=== PATIENT | female | born 1945 | race Caucasian/White ===

== ENCOUNTER 2017-02-18 08:49 | Emergency (ER) | payer OTHER ==
[~2017-02-18] VITALS: Ht 149.9 cm; Wt 58.5 kg
[~2017-02-18 08:49] MED LIST: ADVAIR 100/501 DISK IH; ADVAIR 250/501 DISK IH; ALBUTEROL2.5 MG/3 M IH; ALENDRONATE SOD70 MG PO; ALPRAZOLAM1 MG PO; ASPIR 8181 M1 PO; CALCIUM 500 +1 EAC5 PO; CALCIUM 600+D1 EACH PO; CARAFATE1 GM PO; CIPROFLOXACIN500 M1 PO; CLONAZEPAM0.5 MG PO; COMPAZINE10 MG PO; DAILY VALUE1 EACH PO; DECADRON4 MG PO; DOC-Q-LAX TABL1 EACH PO; DUONEB 2.5-0.5 M3 ML AEROSOL; ELAVIL25 MG PO; FISH OIL 1,0001 EAC7 PO; GLIPIZIDE XL5 MG PO; IMIPRAMINE HCL50 MG PO; IPRATROPIU0.2 MG/1 M IH; KLONOPIN0.5 M1 PO; MARINOL2.5 M1 PO; METOCLOPRAMIDE H5 MG PO; MIRALAX255 GM PO; MIRTAZAPINE15 MG PO; MIRTAZAPINE30 MG PO; MYCOSTATIN 100,60 ML PO; NITROFURANTOIN100 M3 PO; OMEPRAZOLE20 M2 PO; ONDANSETRON HCL8 MG PO; ONDANSETRON ODT8 MG PO; OXAYDO5 MG PO; PANTOPRAZOLE SO40 MG PO; PRAVACHOL40 MG PO; PROTONIX40 MG PO; PURELAX510 GM PO; SEROQUEL12.5 MG PO; SERTRALINE HCL50 MG PO; SUCRALFATE1 GM PO; TRAVATAN Z5 ML BOTH EYES; TRAVATAN Z5 ML LEFT EYE; TRAZODONE HCL100 MG PO; TRAZODONE HCL50 MG PO; ZOFRAN8 MG PO
[2017-02-18 09:19] LABS: ADD MIUA? NO; BILIRUBIN NEGATIVE; BLOOD NEGATIVE; COLOR STRAW ((YELLOW)); GLUCOSE (STRIP) NEGATIVE; KETONES NEGATIVE; LEUKOCYTES NEGATIVE; NITRITE NEGATIVE; PROTEIN (STRIP) NEGATIVE; SPECIFIC GRAVITY 1.005 (1.000-1.030); UCUL ADDED? NO; UROBILINOGEN 0.2 MG/DL (0.2-1.0)
[2017-02-18 09:28] LABS: HEMATOCRIT 38.4 % (36.0-46.0); MCH 29.9 PG (29.0-34.0); MCV 93.4 FL (83-99); MEAN PLAT.VOLUME 11.2 uM^3 (9.5-12.4); RBC DIS.WIDTH-CV 13.5 % (11.8-14.6); RBC DIS.WIDTH-SD 45.7 % (39-53); RED BLOOD COUNT 4.11 M/uL (3.80-5.20); WHITE BLOOD COUNT 9.8 K/uL (4.1-10.2)
[2017-02-18 09:30] LABS: PLATELET COUNT 102 K/uL (156-360)
[2017-02-18 09:37] LABS: CHLORIDE 97 mEq/L (99-109); POTASSIUM 3.9 mEq/L (3.7-5.4); SODIUM 137 mEq/L (136-147)
[2017-02-18 09:39] LABS: GLUCOSE 162 mg/dL (70-99)
[2017-02-18 09:40] LABS: ANION GAP 9 MEQ/L (2-14)
[2017-02-18 09:41] LABS: TOTAL BILIRUBIN 0.5 mg/dL (0.0-1.0)
[2017-02-18 09:42] LABS: ALKALINE PHOSPHATASE 117 IU/L (3-129)
[2017-02-18 09:43] LABS: GFR ESTIMATE (CALCULATED) > 59 mL/min/
[2017-02-18 09:44] LABS: UREA NITROGEN (BUN) 12 mg/dL (9-23)
[2017-02-18 10:15] LABS: AMYLASE 57 IU/L (1-118)
[2017-02-18 10:24] LABS: LIPASE 17 U/L (1.0-51.0)
[2017-02-18] MEDS ORDERED: CARAFATE1 GM PO (13:22)
[2017-02-18 13:38] VITALS: BP 116/77
== END 2017-02-18 13:40 | disposition home or self-care (01) ==
LOC: EME 08:49
DX: R10.13 Epigastric pain (principal); R11.0 Nausea; C34.90 Malignant neoplasm of unspecified part of unspecified bronchus or lung; C79.51 Secondary malignant neoplasm of bone; K21.9 Gastro-esophageal reflux disease without esophagitis; E78.5 Hyperlipidemia, unspecified; Z88.1 Allergy status to other antibiotic agents; Z88.0 Allergy status to penicillin; Z87.891 Personal history of nicotine dependence; Z99.81 Dependence on supplemental oxygen
CPT/HCPCS: 71020; 71260; 74177; 80053; 81003; 82150; 83690; 85027; 93005; 99281; 99284; J2270; J2405; J7030

== ENCOUNTER 2017-02-20 08:12 | Observation (INO) | payer OTHER ==
[~2017-02-20] VITALS: Ht 152.4 cm; Wt 57.3 kg
[2017-02-20 09:05] LABS: EOSINOPHIL (%) 1.1 % (0-5); EOSINOPHIL COUNT 0.1 K/uL (0-0.3); HEMATOCRIT 28.7 % (36.0-46.0); IMMATURE GRANULOCYTE (%) 0.6 % (0.0-0.7); IMMATURE GRANULOCYTE COUNT 0.1 K/uL; INSTRUMENT ABS NEUTROPHIL CT 10.1 K/uL; LYMPHOCYTE COUNT 1.1 K/uL (1.0-2.8); MCH 29.9 PG (29.0-34.0); MCHC 31.7 G/DL (30.0-36.0); MCV 94.4 FL (83-99); MONOCYTE (%) 5.5 % (3-12); MONOCYTE COUNT 0.7 K/uL (0-0.8); NEUTROPHIL (%) 83.4 % (45-76); NEUTROPHIL COUNT 10.1 K/uL (1.8-6.4); RBC DIS.WIDTH-CV 13.7 % (11.8-14.6); RBC DIS.WIDTH-SD 46.6 % (39-53); WHITE BLOOD COUNT 12.1 K/uL (4.1-10.2)
[2017-02-20 09:07] LABS: RED BLOOD COUNT 3.04 M/uL (3.80-5.20)
[2017-02-20 10:35] LABS: MEAN PLAT.VOLUME 11.1 uM^3 (9.5-12.4); PLAT.SUFFICIENCY DECREASED; PLATELET COUNT 108 K/uL (156-360)
[2017-02-20 12:29] LABS: ANION GAP 9 MEQ/L (2-14); CHLORIDE 100 MEQ/L (99-109); GFR ESTIMATE (CALCULATED) > 59 mL/min/; GLUCOSE 201 mg/dL (70-99); POTASSIUM 4.2 MEQ/L (3.7-5.4); SAMPLE HEMOLYSIS CHECK 0; SAMPLE ICTERIC CHECK 0; SAMPLE LIPEMIA CHECK 0; UREA NITROGEN (BUN) 7 mg/dL (9-23)
[2017-02-20 12:36] LABS: SODIUM 144 MEQ/L (136-147)
[2017-02-20] MEDS ORDERED: ROXICODONE5 MG PO (14:17)
[2017-02-20] MEDS ORDERED: SEROQUEL50 MG PO (14:18)
[2017-02-20] MEDS ORDERED: SERTRALINE HCL50 MG PO (14:19)
[2017-02-20] MEDS ORDERED: ATIVAN0.5 MG PO (14:21)
[2017-02-20] MEDS ORDERED: CONSTULOSE10 GM/15 M PO (14:21)
[2017-02-20] MEDS ORDERED: NYSTATIN15 GM TP (14:22)
[2017-02-20] MEDS ORDERED: METOCLOPRAMIDE10 MG PO (14:22)
[2017-02-20] MEDS ORDERED: SUCRALFATE1 GM PO (15:43)
[2017-02-20 16:14] LABS: ADD MIUA? YES; BILIRUBIN NEGATIVE; BLOOD NEGATIVE; COLOR YELLOW ((YELLOW)); GLUCOSE (STRIP) NEGATIVE; KETONES NEGATIVE; LEUKOCYTES SMALL; NITRITE NEGATIVE; PROTEIN (STRIP) NEGATIVE; SPECIFIC GRAVITY 1.006 (1.000-1.030); UROBILINOGEN 0.2 MG/DL (0.2-1.0)
[2017-02-20 16:29] LABS: BACTERIA RARE /HPF; EPITHELIAL CELLS RARE /HPF; MUCUS TRACE /LPF
[2017-02-20 16:52] VITALS: BP 138/79
[2017-02-20 19:34] VITALS: BP 132/80
[2017-02-21] VITALS: BP 138/76
[2017-02-21 00:40] VITALS: BP 109/68
[2017-02-21 06:25] LABS: HEMATOCRIT 31.9 % (36.0-46.0); MCH 30.8 PG (29.0-34.0); MCHC 32.3 G/DL (30.0-36.0); MCV 95.5 FL (83-99); MEAN PLAT.VOLUME 11.4 uM^3 (9.5-12.4); PLATELET COUNT 79 K/uL (156-360); RBC DIS.WIDTH-CV 13.8 % (11.8-14.6); RBC DIS.WIDTH-SD 48.3 % (39-53); RED BLOOD COUNT 3.34 M/uL (3.80-5.20); WHITE BLOOD COUNT 4.1 K/uL (4.1-10.2)
[2017-02-21 06:35] LABS: ANION GAP 5 MEQ/L (2-14); CHLORIDE 108 MEQ/L (99-109); GFR ESTIMATE (CALCULATED) > 59 mL/min/; POTASSIUM 3.9 MEQ/L (3.7-5.4); SAMPLE HEMOLYSIS CHECK 0; SAMPLE ICTERIC CHECK 0; SAMPLE LIPEMIA CHECK 0; SODIUM 147 MEQ/L (136-147); UREA NITROGEN (BUN) 7 mg/dL (9-23)
[2017-02-21 06:42] LABS: GLUCOSE 96 mg/dL (70-99)
[2017-02-21 07:55] VITALS: BP 137/75
[2017-02-21 12:40] VITALS: BP 111/67
== END 2017-02-21 14:00 | disposition home or self-care (01) ==
LOC: EME 08:12 → 5WEST 14:44 → EDOF 14:44 → 5WEST 16:45
PROVIDERS: Emergency Medicine; Physician Assistant
DX: R42 Dizziness and giddiness (principal); R10.13 Epigastric pain; C41.9 Malignant neoplasm of bone and articular cartilage, unspecified; C79.31 Secondary malignant neoplasm of brain; E78.5 Hyperlipidemia, unspecified; K21.9 Gastro-esophageal reflux disease without esophagitis; F32.9 Major depressive disorder, single episode, unspecified; Z88.0 Allergy status to penicillin; Z88.1 Allergy status to other antibiotic agents; Z87.891 Personal history of nicotine dependence; R11.2 Nausea with vomiting, unspecified; R20.2 Paresthesia of skin; F41.9 Anxiety disorder, unspecified; J44.9 Chronic obstructive pulmonary disease, unspecified; Z99.81 Dependence on supplemental oxygen; E11.9 Type 2 diabetes mellitus without complications
CPT/HCPCS: 70450; 80048; 81003; 85025; 85027; 87086; 93005; 94640; 94640 76; 94799; 99202; 99281; 99285; C9113; G0378; J1644; J1885; J2405; J2765; J3010; J7030